=== PATIENT | female | born 1980 | race Caucasian/White ===

== ENCOUNTER 2017-02-18 20:59 | Emergency (ER) | payer BC ==
--- NOTE | 2017-02-18 21:04 | EDM.PDOC ---
ED HPI GENERAL MEDICAL PROBLEM - General Chief Complaint: Lower Extremity Injury/Pain Stated Complaint: PT HURT RT ANKLE Time Seen by Provider: 02/18/17 21:02 Source of Information: Reports: Patient - History of Present Illness INITIAL COMMENTS - FREE TEXT/NARRATIVE: HISTORY AND PHYSICAL: History of present illness: [] Just prior to arrival patient walking on uneven ground twisted her right ankle unable to bear weight due to pain complains of 5/10 pain at rest Denies other injury no fever nausea vomiting chills sweats She has IUD in place, hence, refuses hCG Review of systems: As per history of present illness and below otherwise all systems reviewed and negative. Past medical history: As per history of present illness and as reviewed below otherwise noncontributory. Surgical history: As per history of present illness and as reviewed below otherwise noncontributory. Social history: No reported history of drug or alcohol abuse. Family history: As per history of present illness and as reviewed below otherwise noncontributory. Physical exam: HEENT: Atraumatic, normocephalic, pupils reactive, negative for conjunctival pallor or scleral icterus, mucous membranes moist, throat clear, neck supple, nontender, trachea midline. Lungs: Clear to auscultation, breath sounds equal bilaterally, chest nontender. Heart: S1S2, regular, negative for clicks, rubs, or JVD. Abdomen: Soft, nondistended, nontender. Negative for masses or hepatosplenomegaly. Negative for costovertebral tenderness. Pelvis: Stable nontender. Genitourinary: Deferred. Rectal: Deferred. Extremities: Atraumatic, negative for cords or calf pain. Neurovascular unremarkable. Right lower extremity unaffected above the ankle entirely neurovascularly intact mild swelling and tenderness on the lateral malleolus no bruising redness warmth or exudate or open lesion Neuro: Awake, alert, oriented. Cranial nerves II through XII unremarkable. Cerebellum unremarkable. Motor and sensory unremarkable throughout. Exam nonfocal. Diagnostics: [] Right ankle 3 views Therapeutics: [] Rest ice ibuprofen Stirrup splint Crutches nonweightbearing Impression: [] Right ankle sprain/pain Definitive disposition and diagnosis as appropriate pending reevaluation and review of above. right foot Pain Score (Numeric/FACES): 6 - Related Data Allergies Allergy/AdvReac Type Severity Reaction Status Date / Time No Known Allergies Allergy Verified 02/15/16 16:21 Home Meds: Home Meds . [No Known Home Meds] 02/15/16 [History] Past Medical History - Past Health History Medical/Surgical History: Denies Medical/Surgical History HEENT History: Reports: Impaired Vision Cardiovascular History: Reports: None Respiratory History: Reports: None Gastrointestinal History: Reports: None Genitourinary History: Reports: None HAND SPRING FORMER History: Reports: None Musculoskeletal History: Reports: None Neurological History: Reports: None Psychiatric History: Reports: None Endocrine/Metabolic History: Reports: None Hematologic History: Reports: None Immunologic History: Reports: None Oncologic (Cancer) History: Reports: None Dermatologic History: Reports: None - Infectious Disease History Infectious Disease History: Reports: Chicken Pox - Past Surgical History Head Surgeries/Procedures: Reports: None Social & Family History - Family History Family Medical History: Noncontributory - Tobacco Use Smoking Status *Q: Never Smoker Second Hand Smoke Exposure: No - Recreational Drug Use Recreational Drug Use: No Review of Systems - Review of Systems Review Of Systems: ROS reveals no pertinent complaints other than HPI. Trauma Exam - Physical Exam Exam: See Below Course - Vital Signs Last Recorded V/S: Last Vital Signs Temp 36.4 C 02/18/17 21:01 Pulse 88 02/18/17 21:01 Resp 18 02/18/17 21:01 BP 130/78 02/18/17 21:01 Pulse Ox 97 02/18/17 21:01 - Orders/Labs/Meds Orders: Active Orders 24 hr Category Date Time Status Ankle Min 3V Rt [CR] Stat Exams 02/18/17 21:02 Taken Departure - Departure Time of Disposition: 21:35 Disposition: Home, Self-Care 01 Condition: good Clinical Impression: Ankle sprain - Discharge Information Forms: ED Department Discharge Additional Instructions: Rest Ice 20 minute intervals 3 times daily 7-10 days Ibuprofen 400 mg 3 times daily 7-10 days Elevate foot Crutches as needed Stirrup brace for support and comfort Followup with primary care or cardiovascular disease specialist in 10-14 days [facility] Professional Building [address] [place] [address], [address] [place] [address] orthopedic [facility] - Primary Care [address] [place] [id number] The following information is given to patients seen in the emergency department who are being discharged to home. This information is to outline your options for follow-up care. We provide all patients seen in our emergency department with a follow-up referral. The need for follow-up, as well as the timing and circumstances, are variable depending upon the specifics of your emergency department visit. If you don't have a primary care physician on staff, we will provide you with a referral. We always advise you to contact your personal physician following an emergency department visit to inform them of the circumstance of the visit and for follow-up with them and/or the need for any referrals to a consulting specialist. The emergency department will also refer you to a specialist when appropriate. This referral assures that you have the opportunity for follow-up care with a specialist. All of these measure are taken in an effort to provide you with optimal care, which includes your follow-up. Under all circumstances we always encourage you to contact your private physician who remains a resource for coordinating your care. When calling for follow-up care, please make the office aware that this follow-up is from your recent emergency room visit. If for any reason you are refused follow-up, please contact the [facility] emergency department at and asked to speak to the emergency department charge nurse. - My Orders Last 24 Hours: My Active Orders 02/18/17 21:02 Ankle Min 3V Rt [CR] Stat - Assessment/Plan Last 24 Hours: My Active Orders 02/18/17 21:02 Ankle Min 3V Rt [CR] Stat
[2017-02-18 22:11] VITALS: BP 134/63
--- NOTE | 2017-02-21 14:03 | CR ---
EXAM DATE: 02/18/17 PATIENT'S AGE: 36 Patient: KEITH MIRANDA Facility: [place], [place] Site . Site : 1980 Study: XRay Extremity ankle [id number]/19/2017 9:28:40 PM Ordering Physician: Jami Stark Final Report: INDICATION: injury TECHNIQUE: Three views of the right ankle COMPARISON: None FINDINGS: Bones: No fractures or bone lesions. Joint spaces: Unremarkable. Soft tissues: Unremarkable. IMPRESSION: No acute bony abnormality. Dictated by Chilo Buck MD @ 02/18/2017 9:33:25 PM Dictated by: Chilo Buck MD @ 02/18/2017 21:33:32 (Electronic Signature) Report Signed by Proxy. LYNNE
== END 2017-02-18 21:55 | disposition home or self-care (01) ==
LOC: MW.ED 20:59
DX: S93.401A Sprain of unspecified ligament of right ankle, initial encounter (principal); X50.1XXA Overexertion from prolonged static or awkward postures, initial encounter
CPT/HCPCS: 73610-26-RT; 73610-RT; 99282; 99283